=== PATIENT | male | born 2000 | race Caucasian/White ===

== ENCOUNTER 2023-06-13 19:19 | Emergency (ER) | payer BC ==
[2023-06-13] MEDS ORDERED: Lidocaine 1% 10 ML MDV INJECT ONE (21:56)
[2023-06-13] MEDS ORDERED: Diphtheria,Pertussis(Acell),Tetanus Vaccine 0.5 ML Syringe IM ONE (21:56)
== END 2023-06-13 22:33 | disposition home or self-care (01) ==
LOC: JD.ED 19:19
DX: S81.811A Laceration without foreign body, right lower leg, initial encounter (principal); W26.8XXA Contact with other sharp object(s), not elsewhere classified, initial encounter
CPT/HCPCS: 12001; 90471; 90715; 99282-25; 99283; J3490